=== PATIENT | female | born 1990 | race Asian ===

== ENCOUNTER 2020-01-19 01:52 | Emergency (ER) | payer SELFPAY ==
[~2020-01-19] VITALS: Ht 160 cm; Wt 52.2 kg
[2020-01-19 01:54] VITALS: BP 114/70
== END 2020-01-19 01:59 ==
LOC: MED 01:52
DX: Z02.89 Encounter for other administrative examinations (principal); V89.2XXA Person injured in unspecified motor-vehicle accident, traffic, initial encounter; Y93.89 Activity, other specified; Y92.89 Other specified places as the place of occurrence of the external cause; Y99.8 Other external cause status
CPT/HCPCS: 99283